=== PATIENT | male | born 1970 | race Caucasian/White ===

== ENCOUNTER 2017-01-15 12:33 | Observation (INO) | payer OTHER ==
[2017-01-15] MEDS ORDERED: ASPIRIN 81 MG TAB.CHEW PO ONE (12:44)
--- NOTE | 2017-01-15 12:47 | ERNOTE ---
Chest Pain/Cardiac HPI Chief Complaint: Chest Pain Time Seen by Provider: 01/15/17 12:42 Source: patient Exam Limitations: no limitations Immunizations: IMMUNIZATION HX Immunizations Up to Date No History of Influenza Vaccine No Hx Pneumococcal Vaccination No Allergies/Adverse Reactions: Allergies No Known Allergies Allergy (Verified 10/24/15 18:43) Home Medications: HOME MEDICATIONS Atorvastatin Calcium [Lipitor] 10 mg PO HS 10/25/15 [Last Taken Unknown] Lisinopril [Zestril] 10 mg PO DAILY 10/25/15 [Last Taken Unknown] metFORMIN HCL [Glucophage Xr] 500 mg PO BIDWM #60 tab 10/25/15 [Last Taken Unknown] Narrative: Patient comes in for chest pain which began at approximately 10:30 AM this morning while he was sitting at work at rest. Chest pain was in the left chest area and it radiated to the inner aspect of left upper arm he should state that he became suddenly diaphoretic however did not have any syncope or palpitations. He does have type 2 diabetes for which she is on oral medications and he does smoke a pack a day of cigarettes. Does use of illicit drugs. Review of Systems - Review of Systems Constitutional: Present: no symptoms reported EYE: Present: no symptoms reported ENT: Present: no symptoms reported Respiratory: Present: no symptoms reported Cardiology: Present: See HPI Gastrointestinal/Abdominal: Present: no symptoms reported Genitourinary: Present: no symptoms reported Musculoskeletal: Present: no symptoms reported Skin: Present: no symptoms reported - Patient's Past Medical History Patient History - Medical: Diabetes Type 2 Patient History - Cardiac/Respiratory: Hypertension, Hyperlipidemia Patient History - Cancer: No Hx of Cancer Patient History - Surgical Procedures: Other Patient History - Other: None - Family History Father Family History - Cardiac/Respiratory: Myocardial Infarction - Social History Living Situations: home Abuse History: No History of abuse Psych History: No pertinent hx Does anyone smoke in the home?: Yes Smoking Status: Current every day smoker Have you smoked in the past 12 months: Yes Do you dip or chew tobacco: No Alcohol Use: occasionally Drug Use: none - Immunizations Immunizations Up to Date: No Hx Pneumococcal Vaccination: No History of Influenza Vaccine: No Physical Exam - Physical Exam General Appearance: Present: wd/wn, alert, no apparent distress Head Exam: Present: normal inspection, no evidence of injury Ears, Nose, Throat: Present: normal ENT inspection Neck: Present: normal inspection, nontender Respiratory: Present: no respiratory distress, normal breath sounds, no accessory muscle use, chest nontender, lungs clear Cardiovascular/Chest: Present: regular rate, rhythm, no murmur, normal peripheral pulses ED Progress - Results and Orders Patient's Lab Results:: I have reviewed the patient's lab results. - Vital Signs Patient's Vital Signs:: I have reviewed the patient's vital signs. Vital Signs: Vital Signs 01/15/17 12:40 Temperature 37.2 C Pulse Rate 88 Respiratory 19 Rate Blood Pressure 154/103 O2 Sat by Pulse 98 Oximetry - EKG EKG: NSR - X-Ray X-Ray #1 X-Ray: chest - Progress/Reassessment Chief Complaint: Chest Pain Plan - Plan Plan: This patient has type 2 diabetes, he is a pack-a-day smoker, and he has typical chest pains which went away with nitroglycerin. First set of enzymes are negative Dr. Campbell was counseled in regards to this patient and patient will be admitted to the observation unit on the [facility] floor for observation and further troponin testing Departure - Departure Clinical Impression: Chest pain Qualifiers: Chest pain type: unspecified Qualified Code(s): R07.9 - Chest pain, unspecified Disposition: [facility] Condition: Good
[2017-01-15 13:00] LABS: Hematocrit 42.8 % (42.0-52.0); Hemoglobin 15.1 gm/dL (13.5-18.0); Mean Cell Volume 95.3 fl (78-100); Mean Corpuscular Hemoglobin 33.6 pg (27-31); Mean Corpuscular Hgb Conc 35.3 g/dl (32-36); Mean Platelet Volume 9.9 fl (6.0-9.5); Neutrophil # 6.5 K/mm3 (1.3-6.0); Neutrophil % 54.9 % (42-75.0); Platelet Count 319 K/mm3 (150-450); Red Blood Count 4.49 M/mm3 (4.7-6.0); Red Cell Distribution Width 12.5 % (11.5-14.0); White Blood Count 11.8 K/mm3 (4.0-10.5)
[2017-01-15] MEDS ORDERED: ASPIRIN 81 MG TAB.CHEW ONE (13:04)
[2017-01-15 13:23] LABS: Prothrombin Time (Patient) 9.8 Seconds (9.4-11.4)
[2017-01-15 13:28] LABS: INR 0.94 INR (0.90-1.10); Partial Thrombolplastin Time 28.8 Seconds (24-32)
[2017-01-15] MEDS: NITROGLYCERIN 0.4 MG/TAB BTL SL PRN ×2 (13:29→13:34)
[2017-01-15 13:30] LABS: ALT 85 U/L (19-67); AST 58 U/L (0-48); Albumin * 4.5 gm/dl (3.4-5.0); Alkaline Phosphatase * 75 U/L (50-170); Anion Gap 15.3 mmol/L (6.8-13.8); BUN/Creatinine Ratio 25.3 (9.0-21.6); Bilirubin, Total 0.4 mg/dL (0.0-1.1); Blood Urea Nitrogen 22 mg/dL (6-23); Ca. Corrected For Albumin 8.9 mg/dL (8.4-10.2); Calcium * 9.6 mg/dL (7.9-10.9); Carbon Dioxide 26.5 mmol/L (24-32.6); Chloride 102 mmol/L (97-106); Glucose * 158 mg/dL (70-110); Potassium 3.8 mmol/L (3.4-4.6); Sodium 140 mmol/L (132-142); Total Protein 8.2 gm/dL (6.2-8.2)
[2017-01-15 13:31] LABS: Troponin I Less than 0.017 ng/ml (0.00-0.10)
[2017-01-15 18:21] VITALS: BP 130/83
[2017-01-15 19:32] LABS: CK Total * 175 U/L (0-259); CKMB 1.3 ng/mL (0.0-9.0)
[2017-01-15 19:35] LABS: Troponin I Less than 0.017 ng/ml (0.00-0.10)
--- NOTE | 2017-01-15 20:27 | HP ---
Chief Complaint - Chief Complaint Date of Service: 01/15/17 Time of Service: 20:15 Chief Complaint: chest pain History of Present Illness: 46 years old male adm to the hospital with reports of pain in left arm radiating to his chest pain while at rest. pt stated while at work on his break , he felt the sudden onset of pain. Associated s/s shortness of breath and diaphoresis. He denies nausea,vomiting, palpitation, headaches, dizziness or malaise. His S/s resolved while in ER after Nitro tabs x2. cardiac markers negative and EKG without St elevation. pt stated 2yrs ago he had stress test part of a job hiring process, the test was negative and he continue to be seen by PCP regularly. pt insisting he his much better and want to go home without further interventions. Plan for out-pt stress test and follow up with PCP 3-7 days. PMH significant for hypertension,diabetes, hyperlipidemia, and smoker. plan of care discussed with pt and they verbalized understanding and agrees. - Patient's Past Medical History Patient History - Medical: Diabetes Type 2 Patient History - Cardiac/Respiratory: Hypertension, Hyperlipidemia Patient History - Cancer: No Hx of Cancer Patient History - Surgical Procedures: Other Patient History - Other: None - Family History Father Family History - Cardiac/Respiratory: Myocardial Infarction - Social History Living Situations: spouse Abuse History: No History of abuse Psych History: No pertinent hx Does anyone smoke in the home?: Yes Smoking Status: Current every day smoker Cigarettes Packs Per Day: 1 Have you smoked in the past 12 months: Yes Do you dip or chew tobacco: No Patient requests Smoking Cessation Consult: No Initiate information on Smoking Cessation: Yes Alcohol Use: occasionally Drug Use: none - Immunizations Immunizations Up to Date: No Hx Pneumococcal Vaccination: No History of Influenza Vaccine: No Review Of Systems (GEN) - Review of Systems Generalized/Overall Review: Present: No Symptoms Reported EENTM: Present: No Symptoms Reported Respiratory: Present: No Symptoms Reported Cardiac: Present: No Symptoms Reported Abdominal: Present: No Symptoms Reported Genitourinary: Present: No Symptoms Reported Musculoskeletal: Present: No Symptoms Reported Neurological: Present: No Symptoms Reported Skin: Present: No Symptoms Reported Endocrine: Present: No Symptoms Reported Immunizations: IMMUNIZATION HX Immunizations Up to Date No History of Influenza Vaccine No Hx Pneumococcal Vaccination No Allergies/Adverse Reactions: Allergies Allergy/AdvReac Type Severity Reaction Status Date / Time No Known Allergies Allergy Verified 10/24/15 18:43 Home Medications: HOME MEDICATIONS Atorvastatin Calcium [Lipitor] 10 mg PO HS 10/25/15 [Last Taken Unknown] Lisinopril [Zestril] 10 mg PO DAILY 10/25/15 [Last Taken Unknown] metFORMIN HCL [Glucophage Xr] 500 mg PO BIDWM #60 tab 10/25/15 [Last Taken Unknown] Exam - Exam Vital Signs: Vital Signs - Last Taken Temp 36.2 C L 01/15/17 19:36 Pulse 72 01/15/17 19:36 Resp 16 01/15/17 19:36 BP 130/83 01/15/17 19:36 Pulse Ox 98 01/15/17 19:36 Constitutional: Present: Alert, Oriented x3, Cooperative, Well developed, Young ENT Exam: Present: normal ENT inspection, hearing grossly normal Eye Exam: bilateral eye: normal inspection Neck: Present: full range of motion Back Exam: Present: normal inspection Breasts: Present: Exam deferred Respiratory: Present: chest non-tender, normal breath sounds, no respiratory distress, decreased breath sounds Cardiovascular/Chest: Present: normal peripheral pulses, regular rate, rhythm, no chest tenderness, no edema Peripheral Pulses: dorsalis-pedis (R): 3+, dorsalis-pedis (L): 3+ Abdomen: Present: Normal bowel sounds, soft, nontender, nondistended /Rectal: Present: Exam deferred Extremity: Present: normal range of motion, non-tender, normal inspection, no pedal edema Skin Exam: Present: normal color, warm/dry Neurologic: Present: oriented x 3 Appearance: Present: appropriate appearance Eye contact: Present: cooperative Thoughts: Present: normal thought pattern Diagnostic Studies: Laboratory Results WBC 11.8 K/mm3 (4.0-10.5) H 01/15/17 12:53 RBC 4.49 M/mm3 (4.7-6.0) L 01/15/17 12:53 Hgb 15.1 gm/dL (13.5-18.0) 01/15/17 12:53 Hct 42.8 % (42.0-52.0) 01/15/17 12:53 MCV 95.3 fl (78-100) 01/15/17 12:53 MCH 33.6 pg (27-31) H 01/15/17 12:53 MCHC 35.3 g/dl (32-36) 01/15/17 12:53 RDW 12.5 % (11.5-14.0) 01/15/17 12:53 Plt Count 319 K/mm3 (150-450) 01/15/17 12:53 MPV 9.9 fl (6.0-9.5) H 01/15/17 12:53 Immature Gran % (Auto) 0.30 % (0.001-0.429) 01/15/17 12:53 Immature Gran # (Auto) 0.03 K/mm3 (0.000-0.0310) 01/15/17 12:53 Neutrophils % 54.9 % (42-75.0) 01/15/17 12:53 Lymphocytes % 29.2 % (20-51) 01/15/17 12:53 Monocytes % 11.8 % (0.0-9) H 01/15/17 12:53 Eosinophils % 3.0 % (0.0-3.0) 01/15/17 12:53 Basophils % 0.8 % (0.0-1.0) 01/15/17 12:53 Nucleated RBC % 0.0 k/mm3 (0-1) 01/15/17 12:53 Neutrophils # 6.5 K/mm3 (1.3-6.0) H 01/15/17 12:53 Lymphocytes # 3.4 k/mm3 (1.5-3.5) 01/15/17 12:53 Monocytes # 1.4 k/mm3 (0.0-1.0) H 01/15/17 12:53 Eosinophils # 0.4 k/mm3 (0.0-0.7) 01/15/17 12:53 Absolute Basophils 0.1 k/mm3 (0.0-0.1) 01/15/17 12:53 PT 9.8 Seconds (9.4-11.4) 01/15/17 12:53 INR (Anticoag Therapy) 0.94 INR (0.90-1.10) 01/15/17 12:53 PTT ([place]) 28.8 Seconds (24-32) 01/15/17 12:53 Sodium 140 mmol/L (132-142) 01/15/17 12:53 Plasma Sodium 141 mmol/L (130-142) 01/15/17 12:53 Potassium 3.8 mmol/L (3.4-4.6) 01/15/17 12:53 Chloride 102 mmol/L (97-106) 01/15/17 12:53 Carbon Dioxide 26.5 mmol/L (24-32.6) 01/15/17 12:53 Anion Gap 15.3 mmol/L (6.8-13.8) H 01/15/17 12:53 BUN 22 mg/dL (6-23) 01/15/17 12:53 Creatinine 0.87 mg/dL (0.4-1.4) 01/15/17 12:53 Est GFR (Non-Af Amer) 100 mL/min (60-130) 01/15/17 12:53 BUN/Creatinine Ratio 25.3 (9.0-21.6) H 01/15/17 12:53 Random Glucose 158 mg/dL (70-110) H 01/15/17 12:53 Calcium 9.6 mg/dL (7.9-10.9) 01/15/17 12:53 Calcium Adj for Albumin 8.9 mg/dL (8.4-10.2) 01/15/17 12:53 Total Bilirubin 0.4 mg/dL (0.0-1.1) 01/15/17 12:53 AST 58 U/L (0-48) H 01/15/17 12:53 ALT 85 U/L (19-67) H 01/15/17 12:53 Alkaline Phosphatase 75 U/L (50-170) 01/15/17 12:53 Creatine Kinase 175 U/L (0-259) 01/15/17 19:00 CK-MB (CK-2) 1.3 ng/mL (0.0-9.0) 01/15/17 19:00 CK-MB (CK-2) Rel Index 0.7 (0.0-3.6) 01/15/17 19:00 Troponin I Less than 0.017 ng/ml (0.00-0.10) 01/15/17 19:00 Total Protein 8.2 gm/dL (6.2-8.2) 01/15/17 12:53 Albumin 4.5 gm/dl (3.4-5.0) 01/15/17 12:53 Assessment/Plan - Narrative Narrative: Chest pain- resolved with nitro x2 while in ER Trop x 2 negative EKG noted Plan for outpatient stress and follow up with PCP 3-7 days, pt have extensive family history of cardiac disease. CXR- No acute cardiopulmonary process Continue with home dose of statin Low sodium consistent carb diet Hypertension On adm BP 132/82 Resume home dose of medications Monitor vital signs Diabetes Accu-check AC+HS and low dose SSI Resume home dose of medications Hyperlipidemia Continue with home medication Smoker: Smoking cessation educations provided pt not interested in nicotine patches at this time. Code status: full DVT ppx: Ambulate and SCD GI ppx: Pepcid Time 38 minutes - Assessment/Plan (1) Chest pain Problem: Resolved Qualifiers: Chest pain type: unspecified Qualified Code(s): R07.9 - Chest pain, unspecified (2) Hypertension Problem: Chronic Qualifiers: Hypertension type: essential hypertension Qualified Code(s): I10 - Essential (primary) hypertension (3) Diabetes type 2, controlled Problem: Chronic
--- NOTE | 2017-01-15 20:37 | DS ---
(1) Chest pain Problem: Resolved Qualifiers: Chest pain type: unspecified Qualified Code(s): R07.9 - Chest pain, unspecified (2) Hypertension Problem: Chronic Qualifiers: Hypertension type: essential hypertension Qualified Code(s): I10 - Essential (primary) hypertension (3) Diabetes type 2, controlled Problem: Chronic Description of Stay: 46 years old male adm to the hospital with reports of pain in left arm radiating to his chest pain while at rest. pt stated while at work on his break , he felt the sudden onset of pain. Associated s/s shortness of breath and diaphoresis. S/s resolved while in ER after Nitro tabs x2. pt stated he had stress test 2 yrs ago and it was negative. Today cardiac markers were negative and EKG, in NSR. Plan for out-pt stress test and follow up with PCP 3-7 days. plan of care discussed with pt he verbalized understanding and agrees. Procedures Performed: none Discharge Disposition: Home self care Disposition: Home self-care Condition: Good Discharge Activity: Activity as tolerated Discharge Diet: Consistent carbs Referrals: Marybeth Ramsey ARNP [Primary Care Provider] - Complete Home Medications List: Complete Home Medication List: Atorvastatin Calcium [Lipitor] 10 mg PO HS 10/25/15 Lisinopril [Zestril] 10 mg PO DAILY 10/25/15 metFORMIN HCL [Glucophage Xr] 500 mg PO BIDWM #60 tab 10/25/15
[2017-01-15] MEDS ORDERED: ROSUVASTATIN CALCIUM 10 MG TABLET PO SCH (21:00)
[2017-01-16] MEDS ORDERED: LISINOPRIL 10 MG TABLET PO SCH (09:00)
== END 2017-01-15 21:04 | disposition home or self-care (01) ==
LOC: ER 12:33 → MS 13:41
PROVIDERS: ADMIT Internal Medicine; ATTEND Internal Medicine
DX: R07.89 Other chest pain (principal); I10 Essential (primary) hypertension; E11.9 Type 2 diabetes mellitus without complications; Z79.84 Long term (current) use of oral hypoglycemic drugs; E78.5 Hyperlipidemia, unspecified; F17.210 Nicotine dependence, cigarettes, uncomplicated
CPT/HCPCS: 36415; 71020; 80053; 82550; 82553; 84484; 85025; 85610; 85730; 93005; 99284; G0378